=== PATIENT | female | born 1990 | race Caucasian/White ===

== ENCOUNTER 2024-09-26 22:15 | Emergency (ER) | payer OTHER, SELFPAY ==
[2024-09-26 22:23] VITALS: BP 116/77
[2024-09-26 22:43] LABS: Urine Albumin 1+ (Neg - Trace); Urine Bilirubin Negative (Negative); Urine Character Clear (Clear); Urine Color Yellow; Urine Glucose Negative (Negative); Urine Ketone Negative (Negative); Urine Leukocyte 1+ (Negative); Urine Nitrite Negative (Negative); Urine Occult Blood 3+ (Negative); Urine Urobilinogen Negative (Neg - 1+)
[2024-09-26 22:46] LABS: % Basophils 1.3 % (0-2); % Eosinophils 1.8 % (0-6); % Immature Granulocytes 0.4 % (0-0.5); % Lymphocytes 30.4 % (20.5-51.1); % Monocytes 8.2 % (1.7-9.3); % Neutrophils 57.9 % (42.2-75.2); Absolute Basophils 0.2 10^3/uL (0-0.2); Absolute Eosinophils 0.2 10^3/uL (0-0.7); Absolute Immature Granulocytes 0.1 10^3/uL (0-0.05); Absolute Lymphocytes 3.4 10^3/uL (1.2-3.4); Absolute Monocytes 0.9 10^3/uL (0.1-0.6); Absolute Neutrophils 6.5 10^3/uL (1.4-6.5); Hematocrit 37.8 % (37.0-47.0); Hemoglobin 12.5 g/dL (12.0-16.0); Mean Corp Hgb Conc. 33.1 g/dL (33.0-37.0); Mean Corpuscular Volume 90.6 fL (81.0-99.0); Mean Platelet Volume 9.4 fL (7.4-10.4); Nucleated Red Blood Cells % 0 %; Platelet Count 294 10^3/uL (130-400); Red Blood Cell Count 4.17 10^6/uL (4.20-5.40); Red Cell Dist. Width 12.3 % (11.5-14.5); White Blood Cell Count 11.3 10^3/uL (4.8-10.8)
[2024-09-26 22:54] LABS: Urine Mucus Moderate; Urine Squamous Cell 0-2 /LPF (Few)
[2024-09-26 22:55] LABS: Urine Bacteria Moderate (Negative)
[2024-09-27 01:01] LABS: HCG, Urine Qualitative Screen Negative
[2024-09-27 01:43] LABS: ALT (SGPT) 10 U/L (0-35); AST (SGOT) 15 U/L (14-36); Albumin 4.2 g/dl (3.5-5.0); Alkaline Phosphatase 41 U/L (38-126); Blood Urea Nitrogen 17 mg/dl (7-17); Calcium 9.2 mg/dl (8.4-10.2); Carbon Dioxide 27 mmol/L (22-30); Chloride 105 mmol/L (98-107); Glucose 102 mg/dl (70-99); Lipase 71 U/L (23-300); Potassium 4.6 mmol/L (3.5-5.1); Sodium 137 mmol/L (135-145); Total Bilirubin 0.3 mg/dl (0.2-1.3); Total Protein 6.7 g/dl (6.3-8.2); eGFR > 60.00
[2024-09-27 02:35] VITALS: BP 127/74
[2024-09-27 02:36] VITALS: BMI 23.1
--- NOTE | 2024-09-27 03:17 | ED.GENMED ---
History of Present Illness
General
Chief Complaint: Abdominal Pain
Source: patient
Exam Limitations: none
Time Seen by Provider: 09/27/24 03:02
Nursing documentation reviewed up to this point in time: agreed with
History of Present Illness
History of Present Illness:
34-year-old woman with history of ovarian cysts complains of 1 week history of right lower quadrant pain, worsening over the past few days. She admits that right lower quadrant pain is much worse when she has a full bladder and also worsens as she
empties her bladder. Pain feels similar to previous episodes of ovarian cyst but somewhat more intense than previous ovarian cyst. She has history of left ovarian cyst removal 2016. She underwent ultrasound March 2024 that showed a 7 cm cyst
on the right with follow-up ultrasound a month ago showing resolution of that cyst but then noting a 5 cm cyst on the left ovary.
She denies dysuria and urgency and or hematuria but does note increasing right lower quadrant pain when she empties her bladder. She has not had a fever nor chills. Menses have been regular, denies risk of .
She has been taking ibuprofen sporadically with last dose 2 days ago.
Past History
Past History
ED Past Medical History: Other (Ovarian cyst)
ED Past Surgical History: Appendectomy and Gynecological (Ovarian cyst removal)
Social History
Tobacco: Non-smoker
Personal:
Living: with family
Employment: Employed
Family History
Family History: Other (Noncontributory)
Phy Exam
Physical Exam
Physical Exam:
GENERAL: 34-year-old woman appears her stated age, awake and alert, pleasant, appears in no acute distress. is accompanying.
EYE: anicteric
NECK: Supple, nontender, no meningismus, no significant adenopathy.
ENT: oral mucosa is moist. No rhinorrhea.
CARDIAC: Regular rate and rhythm. no murmur.
LUNGS: Clear breath sounds bilaterally, no acute respiratory distress, no wheezes/rales/rhonchi
ABDOMEN: Soft, nondistended, mild to moderate tenderness right lower quadrant, no r/g, no cvat. normoactive BS.
NEUROLOGICAL: Alert and oriented x3, no focal neuro deficits. Gait is steady.
SKIN: Warm and dry, normal color, skin intact. No rash.
MUSCULOSKELETAL: No C/C/E. peripheral pulses are full and equal b/l. No palpable tenderness.
PSYCH: Normal and appropriate interaction.
Course
Orders/Labs/Results
Orders:
Orders
09/26/24 22:26
Test Result ONCE
09/26/24 22:35
Complete Blood Count/With Diff Urgent
HCG, Urine Qualitative Screen Urgent
Date Specimen was Collected: 09/26/24
Time Specimen was Collected: 22:26
Comment: ADDED
Urinalysis Reflex To Culture Urgent
Date Specimen was Collected: 09/26/24
Time Specimen was Collected: 22:26
Urine Microscopic Reflex Cult Urgent
Urine Culture Urgent
CHRIS Source: U
Specimen Description:
Date Specimen was Collected: 09/26/24
Time Specimen was Collected: 22:26
09/26/24 22:52
Comprehensive Metabolic Panel Urgent
Comment: LIP
Lipase Urgent
09/27/24 00:44
US Renal With Bladder Urgent
Comment:
Reason For Exam: pain, blood in urine
09/27/24 00:46
US Pelvis W Transvag Combined Urgent
Reason For Exam: RLQ pain, hx of ovarian cysts
09/27/24 00:48
Add On- LAB Urgent
Tests Added?: urine hcg
09/27/24 03:14
Fosfomycin [Monurol] 3 gm PO ONCE ONE
Ibuprofen [Motrin] 600 mg PO NOW STA
Abnormal Lab Results
09/26/24 09/27/24
22:35 00:54
WBC 11.3 H 10^3/uL
(4.8-10.8)
RBC 4.17 L 10^6/uL
(4.20-5.40)
Abs Immat Gran (auto) 0.1 H 10^3/uL
(0-0.05)
Absolute Monos (auto) 0.9 H 10^3/uL
(0.1-0.6)
Glucose 102 H mg/dl
(70-99)
Ur Occult Blood Reflex 3+ A
(Negative)
Leukocyte Esterase Rfl 1+ A
(Negative)
Urine RBC 3-6 A /HPF
(0-2)
Urine WBC (Reflex) 11-15 A /HPF
(0-5)
Urine Bacteria (Reflex) Moderate A
(Negative)
Urine Albumin (Reflex) 1+ A
(Neg - Trace)
09/26/24 22:35
09/27/24 00:54
Vital Signs
Initial and Last Documented VS:
Initial Vital Signs
Temp Pulse Resp BP Pulse Ox
98 F 89 14 116/77 96
09/26/24 22:23 09/26/24 22:23 09/26/24 22:23 09/26/24 22:23 09/26/24 22:23
Last Documented Vital Signs
Temp Pulse Resp BP Pulse Ox
97.7 F 64 16 127/74 96
09/27/24 02:35 09/27/24 02:35 09/27/24 02:35 09/27/24 02:35 09/26/24 22:23
MDM/Problems Addressed
Differential Diagnosis Includes:
Concern for ovarian cyst, ovarian torsion, ureteric stone, UTI.
Labs show minimally elevated white blood cell count of 11.3, unremarkable chemistries.
Preliminary urinalysis dips +3 blood, +1 leukocyte esterase. UCG is negative.
Renal ultrasound shows no evidence of hydronephrosis, normal-appearing kidneys bilaterally. Urinary bladder appears normal.
Pelvic ultrasound shows a 5.1 cm probable hemorrhagic cyst in the right ovary with good arterial and venous blood flow to the right ovary, trace free fluid in the right adnexa. Left ovary appears normal with normal blood flow. Uterus appears
normal.
I suspect right lower quadrant pain is related to hemorrhagic right ovarian cyst. Reassuring that there is no evidence of torsion.
Patient has been offered a dose of Toradol which she declines. Accepts a dose of ibuprofen.
She has been taking ibuprofen sporadically the last dose was , 2 days ago. Will provide prescription for diclofenac to take twice daily for as needed pain.
Urinalysis concerning for potential UTI with moderate bacteria, 11-15 WBCs, 3-6 RBCs. As such we will give a one-time dose of Monurol for potential UTI. Urine culture is pending.
Recommend prompt follow-up with [facility] for follow-up.
Chronic conditions affecting care: Other (History of ovarian cysts)
Acute Exacerbation and/or Progression of Chronic Illness: Other (Ovarian cyst)
*Radiology
Radiology exam reviewed: radiology read reviewed
*Pulse Oximetry
Patient hypoxic: no
*Critical Care Note
Total Time (30-74mins, 75-104mins- exclusive of procedures): Not Applicable
ED Attending Note
-
Portions of this chart may have been created with voice recognition software.� Occasional wrong word or��sound alike� substitutions may have occurred due to the inherent limitations of voice recognition software.
Discharge Plan
Departure
Patient Disposition: Home (Routine Discharge)
Date of Disposition: 09/27/24
Time of Disposition: 03:23
Patient with high blood pressure during this ER visit?: No
Condition: Good
Discharge Problem:
Hemorrhagic cyst of right ovary
Instructions: Ovarian cyst - ED discharge instructions
Prescriptions:
New
diclofenac sodium 75 mg tablet,delayed release (DR/EC)
75 mg PO BID PRN (Reason: pain) Qty: 30 0RF
Referrals:
Christoph Pizano DO [Family Provider] -
Activity Restrictions/Additional Instructions:
Follow-up with your cloth shearer next week for recheck.
Interventions
Interventions:
*Risk Screen - Suicide Last Done: 09/26/24 22:23
*General Assessment Last Done: 09/26/24 22:23
*Neglect/Abuse Screening Last Done: 09/26/24 22:23
*ED- Fall Risk Assessment Last Done: 09/27/24 02:37
*ED COVID-19 Vaccine History Last Done: 09/27/24 02:37
*Nursing Disposition Last Done: 09/27/24 03:35
FY-Sryteh-Rptjamqdaz Assessment Last Done: 09/27/24 02:15
Discharge Date and Time
Discharge Date/Time: 09/27/24 03:35
Print Language: [place]
[2024-09-27] MEDS: MOTRIN 600 MG PO (03:27)
[2024-09-27] MEDS: MONUROL 3 GM PO (03:27)
== END 2024-09-27 03:35 | disposition home or self-care (01) ==
LOC: EMR 22:15
PROVIDERS: EMERGENCY PHYSICIAN Emergency Medicine; FAMILY PHYSICIAN Family Medicine
DX: N83.201 Unspecified ovarian cyst, right side (principal)
CPT/HCPCS: 99284; 76770; 76830; 76856; 80053; 81003; 81015; 81025; 83690; 85025; 87086